=== PATIENT | female | born 1990 | race Caucasian/White ===

== ENCOUNTER → 2020-07-10 | Outpatient (CLI) | payer BC, OTHER ==
[~2020-07-10] MED LIST: BACTRIM DS 8001 TA1 PO
[2020-07-10 19:40] LABS: IRON 19 ug/dL (50-170); TOTAL IRON BINDING CAPACITY 376 ug/dl (250-450)
[2020-07-10 20:11] LABS: FERRITIN 12.5 ng/mL (10.0-291.0)
== END | disposition home or self-care (01) ==
LOC: LAB 18:43
PROVIDERS: Nurse Practitioner Family
DX: D64.9 Anemia, unspecified (principal)

== ENCOUNTER → 2020-08-21 | Outpatient (CLI) | payer BC, OTHER | END | disposition home or self-care (01) | LOC: COVID19 00:07 | PROVIDERS: ATTEND Nurse Practitioner Family | DX: Z20.828 Contact with and (suspected) exposure to other viral communicable diseases (principal) ==